=== PATIENT | female | born 1985 | race Hispanic/Latino ===

== ENCOUNTER 2018-02-24 22:31 | Emergency (ER) | payer SELFPAY ==
[~2018-02-24] VITALS: Ht 162.6 cm; Wt 85.7 kg
[2018-02-24 22:37] VITALS: BP 130/75
[2018-02-24 23:10] LABS: HEMATOCRIT 36.3 % (36.0-46.0); HEMOGLOBIN 12.2 G/DL (11.9-15.5); MCH 26.5 PG (29.0-34.0); MCHC 33.6 G/DL (30.0-36.0); MCV 78.7 FL (83-99); RBC DIS.WIDTH-CV 15.2 % (11.8-14.6); RBC DIS.WIDTH-SD 43.4 % (39-53); RED BLOOD COUNT 4.61 M/uL (3.80-5.20); WHITE BLOOD COUNT 10.3 K/uL (4.1-10.2)
[2018-02-24 23:20] LABS: PLATELET COUNT 214 K/uL (156-360)
[2018-02-24 23:24] LABS: ALBUMIN 4.3 g/dL (3.2-4.8); CHLORIDE 106 mEq/L (99-109); POTASSIUM 4.1 mEq/L (3.7-5.4); SODIUM 139 mEq/L (136-147)
[2018-02-24 23:27] LABS: GLUCOSE 114 mg/dL (70-99); TOTAL PROTEIN 7.9 g/dL (6.4-8.3)
[2018-02-24 23:28] LABS: TOTAL BILIRUBIN 0.5 mg/dL (0.0-1.0)
[2018-02-24 23:30] LABS: ALKALINE PHOSPHATASE 174 IU/L (3-129); CREATININE 0.8 mg/dL (0.6-1.3)
[2018-02-24 23:31] LABS: UREA NITROGEN (BUN) 9 mg/dL (9-23)
[2018-02-24 23:32] LABS: AST (GOT) 103 IU/L (2-34)
[2018-02-24 23:33] LABS: ALT (GPT) 414 IU/L (3-49)
[2018-02-24 23:37] LABS: GFR ESTIMATE (CALCULATED) > 59 mL/min/
[2018-02-24 23:40] LABS: QUANTITATIVE HCG < 4.0 MIU/ML
[2018-02-25 00:56] LABS: PLAT.SUFFICIENCY ADEQUATE
== END 2018-02-25 01:32 | disposition left against medical advice (07) ==
LOC: EME 22:31
DX: R10.9 Unspecified abdominal pain (principal); Z53.21 Procedure and treatment not carried out due to patient leaving prior to being seen by health care provider
CPT/HCPCS: 80053; 81003; 84702; 85027

== ENCOUNTER 2018-03-08 20:15 | Inpatient (IN) | payer SELFPAY ==
[~2018-03-08] VITALS: Ht 152.4 cm; Wt 85.4 kg
[2018-03-08 20:58] LABS: HEMATOCRIT 33.2 % (36.0-46.0); HEMOGLOBIN 11.4 G/DL (11.9-15.5); MCH 26.8 PG (29.0-34.0); MCHC 34.3 G/DL (30.0-36.0); MCV 77.9 FL (83-99); RBC DIS.WIDTH-SD 41.4 % (39-53); RED BLOOD COUNT 4.26 M/uL (3.80-5.20); WHITE BLOOD COUNT 13.3 K/uL (4.1-10.2)
[2018-03-08 21:06] LABS: ALBUMIN 4.2 g/dL (3.2-4.8); CHLORIDE 104 mEq/L (99-109); POTASSIUM 3.5 mEq/L (3.7-5.4); SODIUM 138 mEq/L (136-147)
[2018-03-08 21:09] LABS: TOTAL PROTEIN 7.5 g/dL (6.4-8.3)
[2018-03-08 21:10] LABS: TOTAL BILIRUBIN 0.6 mg/dL (0.0-1.0)
[2018-03-08 21:11] LABS: GLUCOSE 143 mg/dL (70-99)
[2018-03-08 21:12] LABS: ALKALINE PHOSPHATASE 106 IU/L (3-129); CREATININE 0.6 mg/dL (0.6-1.3); GFR ESTIMATE (CALCULATED) > 59 mL/min/
[2018-03-08 21:13] LABS: UREA NITROGEN (BUN) 9 mg/dL (9-23)
[2018-03-08 21:14] LABS: AST (GOT) 109 IU/L (2-34)
[2018-03-08 21:15] LABS: ALT (GPT) 73 IU/L (3-49); LIPASE 14 U/L (1.0-51.0)
[2018-03-08 21:21] LABS: QUANTITATIVE HCG < 4.0 MIU/ML
[2018-03-08 21:35] LABS: PLATELET COUNT 171 K/uL (156-360)
[2018-03-08 22:37] LABS: APPEARANCE SL.HAZY ((CLEAR)); BILIRUBIN NEGATIVE; BLOOD MODERATE; COLOR YELLOW ((YELLOW)); GLUCOSE (STRIP) NEGATIVE; KETONES NEGATIVE; LEUKOCYTES MODERATE; NITRITE NEGATIVE; PROTEIN (STRIP) 30; SPECIFIC GRAVITY 1.017 (1.000-1.030)
[2018-03-08 22:57] LABS: BACTERIA RARE /HPF; EPITHELIAL CELLS 2+ /HPF; MUCUS TRACE /LPF; UCUL ADDED? YES; WHITE BLOOD CELLS 20-30 /HPF (0-5)
[2018-03-08 23:21] LABS: DIRECT BILIRUBIN 0.4 mg/dL (0.0-0.3)
[2018-03-09] MEDS ORDERED: TYLENOL EXTRA500 MG PO (00:44)
[2018-03-09 04:33] VITALS: BP 108/57
[2018-03-09 07:05] VITALS: BP 96/51
[2018-03-09 12:27] VITALS: BP 99/58
[2018-03-09 15:56] VITALS: BP 99/55
[2018-03-09 21:14] VITALS: BP 101/58
[2018-03-09 23:15] VITALS: BP 102/52
[2018-03-10 03:20] VITALS: BP 101/55
[2018-03-10 06:42] LABS: HEMATOCRIT 30.6 % (36.0-46.0); HEMOGLOBIN 10.2 G/DL (11.9-15.5); MCH 26.4 PG (29.0-34.0); MCHC 33.3 G/DL (30.0-36.0); MCV 79.1 FL (83-99); PLATELET COUNT 145 K/uL (156-360); RBC DIS.WIDTH-CV 15.3 % (11.8-14.6); RBC DIS.WIDTH-SD 43.4 % (39-53); RED BLOOD COUNT 3.87 M/uL (3.80-5.20); WHITE BLOOD COUNT 5.5 K/uL (4.1-10.2)
[2018-03-10 07:00] LABS: CHLORIDE 109 MEQ/L (99-109); CREATININE 0.4 MG/DL (0.6-1.3); GFR ESTIMATE (CALCULATED) > 59 mL/min/; POTASSIUM 3.4 MEQ/L (3.7-5.4); SODIUM 141 MEQ/L (136-147); UREA NITROGEN (BUN) 5 mg/dL (9-23)
[2018-03-10 07:06] LABS: GLUCOSE 77 mg/dL (70-99)
[2018-03-10 10:28] VITALS: BP 116/56
[2018-03-10 20:02] VITALS: BP 113/64
[2018-03-11 00:04] VITALS: BP 107/61
[2018-03-11 04:02] VITALS: BP 107/59
[2018-03-11 07:41] VITALS: BP 98/58
[2018-03-11 09:29] LABS: BASOPHIL (%) 0.2 % (0-1); EOSINOPHIL (%) 0.5 % (0-5); EOSINOPHIL COUNT 0.1 K/uL (0-0.3); HEMATOCRIT 34.9 % (36.0-46.0); HEMOGLOBIN 11.5 G/DL (11.9-15.5); IMMATURE GRANULOCYTE (%) 0.5 % (0.0-0.7); LYMPHOCYTE (%) 22.3 % (15-42); LYMPHOCYTE COUNT 2.5 K/uL (1.0-2.8); MCH 26.2 PG (29.0-34.0); MCV 79.5 FL (83-99); MONOCYTE (%) 4.4 % (3-12); MONOCYTE COUNT 0.5 K/uL (0-0.8); NEUTROPHIL (%) 72.1 % (45-76); PLATELET COUNT 171 K/uL (156-360); RBC DIS.WIDTH-CV 15.1 % (11.8-14.6); RBC DIS.WIDTH-SD 42.8 % (39-53); RED BLOOD COUNT 4.39 M/uL (3.80-5.20)
[2018-03-11 09:50] LABS: ALBUMIN 3.6 G/DL (3.2-4.8); ALKALINE PHOSPHATASE 89 IU/L (3-129); CHLORIDE 106 MEQ/L (99-109); CREATININE 0.5 MG/DL (0.6-1.3); GFR ESTIMATE (CALCULATED) > 59 mL/min/; POTASSIUM 3.4 MEQ/L (3.7-5.4); POTASSIUM 3.5 MEQ/L (3.7-5.4); SODIUM 140 MEQ/L (136-147); SODIUM 141 MEQ/L (136-147); TOTAL BILIRUBIN 0.5 MG/DL (0.0-1.0); TOTAL PROTEIN 6.5 G/DL (6.4-8.3); UREA NITROGEN (BUN) 4 mg/dL (9-23)
[2018-03-11 09:52] LABS: ALT (GPT) 315 IU/L (3-49); AST (GOT) 103 IU/L (2-34); GLUCOSE 119 mg/dL (70-99); GLUCOSE 121 mg/dL (70-99)
[2018-03-11] MEDS ORDERED: ENDOCET 5-3251 EACH PO (11:23)
[2018-03-11 12:10] VITALS: BP 106/56
[2018-03-11 15:46] VITALS: BP 90/50
[2018-03-11 19:35] VITALS: BP 132/78
[2018-03-12 00:11] VITALS: BP 103/55
[2018-03-12 05:45] LABS: HEMOGLOBIN 10.9 G/DL (11.9-15.5); MCH 26.1 PG (29.0-34.0); MCV 79.1 FL (83-99); PLATELET COUNT 148 K/uL (156-360); RBC DIS.WIDTH-CV 15.5 % (11.8-14.6); RBC DIS.WIDTH-SD 44.2 % (39-53); RED BLOOD COUNT 4.17 M/uL (3.80-5.20); WHITE BLOOD COUNT 8.5 K/uL (4.1-10.2)
[2018-03-12 06:19] LABS: ALBUMIN 3.5 G/DL (3.2-4.8); ALKALINE PHOSPHATASE 87 IU/L (3-129); ALT (GPT) 212 IU/L (3-49); CHLORIDE 108 MEQ/L (99-109); CREATININE 0.5 MG/DL (0.6-1.3); GFR ESTIMATE (CALCULATED) > 59 mL/min/; LIPASE 20 U/L (1.0-51.0); POTASSIUM 3.7 MEQ/L (3.7-5.4); SODIUM 140 MEQ/L (136-147); TOTAL BILIRUBIN 0.5 MG/DL (0.0-1.0); TOTAL PROTEIN 6.4 G/DL (6.4-8.3); UREA NITROGEN (BUN) 8 mg/dL (9-23)
[2018-03-12 06:25] LABS: AST (GOT) 53 IU/L (2-34); GLUCOSE 87 mg/dL (70-99)
[2018-03-12 07:37] VITALS: BP 91/49
[2018-03-12 11:28] VITALS: BP 98/50
[2018-03-12] MEDS ORDERED: ZOFRAN ODT4 MG PO (12:33)
== END 2018-03-12 12:52 | disposition home or self-care (01) | DRG 419 ==
LOC: EME 20:15 → 2EAST 03-09 02:59 → EDOF 03-09 02:59 → ENRESERV 03-09 03:16 → 2EAST 03-09 04:21
PROVIDERS: Hospitalist; Physician Assistant; Physician Assistant Medical; Physician Assistant Surgical; Student in an Organized Health Care Education/Training Program
DX: K80.12 Calculus of gallbladder with acute and chronic cholecystitis without obstruction (principal); E66.9 Obesity, unspecified; Z68.36 Body mass index [BMI] 36.0-36.9, adult; E87.6 Hypokalemia; K82.8 Other specified diseases of gallbladder
CPT/HCPCS: 36415; 74177; 74181; 74183; 80048; 80053; 81003; 82248; 83690; 84702; 85025; 85027; 86140; 87077; 87086; 88304; 88307; 88313; 99281; 99285; J0131; J0330; J0696; J1100; J1170; J1644; J1885; J1956; J2250; J2270; J2405; J2710; J3010; J3480; J7030; J7643; S0020